=== PATIENT | female | born 1990 | race Caucasian/White ===

== ENCOUNTER 2022-02-02 13:31 | Inpatient (IN) ==
[2022-02-02] MEDS ORDERED: OXYTOCIN 30 UNITS/500 ML BAG IV PRN (21:29)
[2022-02-02] MEDS ORDERED: PENICILLIN G POTASSIUM 6 MU in DEXTROSE 5% 250 ML IV ONE (21:45)
[2022-02-02] MEDS ORDERED: DINOPROSTONE 10 MG INSERT PV ONE (21:45)
[2022-02-02 22:07] LABS: Hematocrit (blood only) 33.6 % (37-47); Hemoglobin 10.7 g/dL (12.0-16.0); Mean Corpuscular Hemoglobin 24.5 pg (25-34); Mean Corpuscular Hgb Conc 31.8 g/dL (32-36); Mean Corpuscular Volume 76.9 fL (80-100); Mean Platelet Volume 11.5 fL (7.4-10.4); Platelet Count 228 K/uL (130-400); RDW Coefficient of Variation 15.1 % (11.5-14.5); RDW Standard Deviation 42.3 fL (36.4-46.3); Red Blood Count 4.37 M/uL (4.2-5.4); White Blood Count 16.65 K/uL (4.8-10.8)
[2022-02-02] MEDS ORDERED: BUTORPHANOL TARTRATE 1 MG/ML VIAL IV PRN (22:31)
[2022-02-02] MEDS ORDERED: FLUCONAZOLE 50 MG TAB PO ONE (22:39)
--- NOTE | 2022-02-02 22:39 | History & Physical Report ---
Date of Service February 02, 2022 Assessment & Plan (1) Polyhydramnios affecting in third trimester: Plan: 31-year-old at 39 weeks and 5 days of gestation presenting today for scheduled induction of labor at term due to polyhydramnios, recommended by [facility], Slight elevated blood pressures, asymptomatic, will order labs, Afebrile, heart rate reassuring, Polyhydramnios resolved per current ultrasound, Cervix unfavorable, GBS positive, Plan to admit, monitor, labs, cervical ripening with Cervidil, penicillin in labor. All questions were answered. (2) Positive GBS test: Admission and Anticipated Discharge Date Admission Date: February 02, 2022 History of Present Illness Primary Care Provider: Cam Bauer MD Patient is a 31-year-old at 39 weeks and 5 days of gestation who was scheduled for induction of labor at term for polyhydramnios, recommended by [facility]. She has no complaints. She denies contractions, leakage of fluid, vaginal bleeding. She reports good movements. Her has been complicated by, 1. Polyhydramnios, BEE was 30 cm and she was referred to [facility] and repeat BEE was 27 cm and recommended induction of labor after 39 weeks. 2. Abnormal glucose tolerance test, elevated 1 hour level with 100 g Glucola test. 3. GBS positive, 4. Late care at 28 weeks. 5. Depression during , on Zoloft Coronavirus testing was negative. Allergies Allergy/AdvReac Type Severity Reaction Status Date / Time No Known Allergies Allergy Unverified 02/02/22 20:58 Home Medications Medication Instructions Recorded Confirmed Type sertraline 100 mg tablet (Zoloft) 100 mg PO DAILY #0 tab 02/15/16 02/02/22 History vit no.95-ferrous 1 tab PO DAILY 02/02/22 02/02/22 History fumarate 28 mg-folic acid 800 mcg tablet () Patient History Medical History (Updated 02/02/22 @ 22:37 by Phillip Dahl MD) ASCUS with positive high risk HPV Depression YAZ (generalized anxiety disorder) GBS (group B Streptococcus carrier), +RV culture, currently History of anemia Surgical History History of dental surgery Social History Smoking Status: Never smoker Hx Alcohol Use: No Hx Substance Use: No Preferred Language: [place] Communication Ability: Effective 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 Review of Systems as per Subjective / HPI Physical Exam Constitutional: WD/WN, vitals as above well developed, well nourished and + obese Comfortable , not in distress Gastrointestinal (Abdomen): normal bowel sounds, soft, nontender, no hepatosplenomegaly (Gravid, Erick 7 pounds) Genitourinary: normal external appearance OB Exam Abdomen: + vertex Manual OB Exam: + cervical dilation 1 cm, + cervical effacement 50% and + station high (-4) OB Exam Monitor Tracing: + external uterine monitor used and + category I Bedside ultrasound is performed by myself, vertex, BEE 18.5 cm, estimated weight 3200 g, placenta anterior, heart rate 140s. Results & Data ([facility]) Vital Signs (Past 12 Hours) Vital Signs Temp Pulse Resp BP 02/02/22 21:12 129 H 135/87 02/02/22 21:03 36.8 C 18 02/02/22 20:56 123 H 143/89 H
[2022-02-02 23:20] LABS: Albumin Globulin Ratio 1.1 (0.9-2); Albumin Level 3.1 gm/dl (3.4-5.0); BUN Creatinine Ratio 11.3 (10-20); Bilirubin,Total 0.6 mg/dl (0.2-1.0); Calcium 8.1 mg/dl (8.5-10.1); Est GFR (African American) 89.6 ml/min; Est GFR (Non-African American) 77.3 ml/min; Globulin 2.8 gm/dl (2.5-4.0); Potassium 3.7 mmol/L (3.5-5.1); Total Protein 5.9 gm/dl (6.0-8.3)
[2022-02-03 00:09] LABS: Creatinine Urine Random 172.9 mg/dl; Protein Creatinine Ratio Urine 0.2 (0-0.2); Total Protein Urine Random 32.4 mg/dl (0-11.9)
[2022-02-03] MEDS: LACTATED RINGER'S 1,000 ML IV PRN ×4 (01:41→17:27)
[2022-02-03] MEDS ORDERED: ePHEDrine sulfate 50 MG/ML AMP ONE ×2 (04:20→20:52)
[2022-02-03] MEDS ORDERED: fentaNYL citrate 100 MCG/2 ML VIAL ONE ×5 (04:21→21:46)
[2022-02-03] MEDS ORDERED: fentaNYL 2MCG/ML ROPIVACAINE 1.25MG/ML 100 ML BAG EPI ONE (04:21)
[2022-02-03] MEDS ORDERED: SODIUM CHLORIDE 0.9% INJ 10 ML VIAL ONE ×2 (04:21→20:44)
[2022-02-03] MEDS ORDERED: BUPIVACAINE 0.25% 30 ML VIAL ONE ×3 (04:21→20:44)
--- NOTE | 2022-02-03 05:35 | Anesthesiology Consultation ---
Date of Service February 03, 2022 Assessment & Plan Chart Review Chart Review: Acceptable Risk for Labor Epidural Consults Requested none History Height/Weight Height: 4 ft 11 in Weight: 81.647 kg Allergies Allergy/AdvReac Type Severity Reaction Status Date / Time No Known Allergies Allergy Unverified 02/02/22 20:58 Medications Home Medications Medication Instructions Recorded Confirmed Last Taken sertraline 100 mg tablet (Zoloft) 100 mg PO DAILY #0 tab 02/15/16 02/02/22 02/02/22 vit no.95-ferrous 1 tab PO DAILY 02/02/22 02/02/22 02/02/22 fumarate 28 mg-folic acid 800 mcg tablet () Active Medications Generic Name Dose Route Start Last Admin Trade Name Freq PRN Reason Stop Dose Admin Butorphanol Tartrate 1 mg 02/02/22 22:31 02/03/22 01:37 Butorphanol Tartrate 1 Mg/Ml Vial IV 03/04/22 22:30 1 mg Q3HWA PRN Administration Pain Lactated Ringer's 1,000 mls @ 125 mls/hr 02/02/22 21:29 02/03/22 04:46 Lr IV 02/04/22 21:28 125 mls/hr .Q8H PRN Administration L&D Protocol Protocol Past Medical History Medical History (Updated 02/02/22 @ 22:37 by Phillip Dahl MD) ASCUS with positive high risk HPV Depression YAZ (generalized anxiety disorder) GBS (group B Streptococcus carrier), +RV culture, currently History of anemia Past Surgical History Surgical History History of dental surgery Social History Smoking Status: Never smoker Hx Alcohol Use: No Hx Substance Use: No substance use type: does not use Physical Exam Vital Signs Last Vital Signs Temp 36.5 C 02/03/22 01:33 Pulse 108 H 02/03/22 05:34 Resp 16 02/03/22 05:25 BP 116/59 L 02/03/22 05:34 Pulse Ox 100 02/03/22 05:32 Testing Laboratory Results 02/02/22 21:49 02/02/22 22:54 Blood Type A Positive 02/02/22 21:49 Antibody Screen NEGATIVE 02/02/22 21:49
[2022-02-03] MEDS ORDERED: ePHEDrine sulfate 50 MG/ML AMP IV PRN ×2 (05:36→21:52)
[2022-02-03] MEDS ORDERED: NALOXONE HCL 0.4 MG/1 ML VIAL/CARP IV PRN ×2 (05:36→21:52)
[2022-02-03] MEDS ORDERED: NALBUPHINE HCL INJ 10 MG/ML AMP IV PRN ×2 (05:36→21:52)
[2022-02-03] MEDS ORDERED: diphenhydrAMINE 50 MG/ML VIAL IV PRN ×2 (05:36→21:52)
[2022-02-03] MEDS ORDERED: NALOXONE HCL 1 MG in SODIUM CHLORIDE 0.9% 1000ML 1,000 ML IV PRN ×2 (05:36→21:52)
[2022-02-03] MEDS ORDERED: ONDANSETRON INJ 2 MG/ML 2 ML VIAL IV PRN ×2 (05:40→21:52)
[2022-02-03] MEDS ORDERED: ONDANSETRON INJ 2 MG/ML 2 ML VIAL ONE ×2 (05:43→20:52)
[2022-02-03] MEDS: PENICILLIN G POTASSIUM 3 MU in DEXTROSE 5% 100 ML IV PRN ×4 (06:02→18:03)
[2022-02-03] MEDS ORDERED: OXYTOCIN 30 UNITS/500 ML BAG IV PRN (07:59)
[2022-02-03] MEDS: SERTRALINE HCL 100 MG TABLET PO SCH (09:09)
[2022-02-03] MEDS: PRENATAL VITAMIN 1 TAB PO SCH (09:10)
--- NOTE | 2022-02-03 14:51 | Labor Progress Brief Note ---
Date of Service February 03, 2022 Assessment & Plan Admission and Anticipated Discharge Date Admission Date: February 02, 2022 Physical Exam Genitourinary: OB Exam Abdomen: + fundal height and + vertex Manual OB Exam: + cervical dilation 6 cm and 7 cm, + cervical effacement 100%, + station - 2 and + amniotic fluid clear OB Exam Monitor Tracing: + external FHT monitor used, + external uterine monitor used, + category I and + normal FHT variability AROM with Amni-hook clear fluid Results & Data ([facility]) Vital Signs (Past 12 Hours) Vital Signs Temp Pulse Resp BP Pulse Ox 02/03/22 14:47 94 H 84 L 02/03/22 14:46 91 H 95 02/03/22 14:41 83 99 02/03/22 14:36 91 H 98 02/03/22 14:33 115 H 89 L 02/03/22 14:31 89 96 02/03/22 14:26 87 98 02/03/22 14:21 116 H 99 02/03/22 14:20 79 112/55 L 02/03/22 14:17 99 H 88 L 02/03/22 14:16 104 H 100 02/03/22 14:11 104 H 94 02/03/22 14:06 94 H 97 02/03/22 14:02 102 H 124/77 02/03/22 14:01 96 H 97 02/03/22 13:56 107 H 97 02/03/22 13:51 103 H 98 02/03/22 13:47 107 H 115/69 02/03/22 13:46 96 H 95 02/03/22 13:41 123 H 98 02/03/22 13:40 110 H 87 L 02/03/22 13:36 131 H 99 02/03/22 13:34 139 H 130/75 02/03/22 13:31 98 H 99 02/03/22 13:26 97 H 97 02/03/22 13:21 89 98 02/03/22 13:19 90 121/62 02/03/22 13:16 93 H 98 02/03/22 13:11 89 97 02/03/22 13:06 86 95 02/03/22 13:02 83 102/55 L 02/03/22 13:01 88 96 02/03/22 12:56 88 97 02/03/22 12:51 87 98 02/03/22 12:49 90 88 L 02/03/22 12:47 91 H 102/59 L 02/03/22 12:46 96 H 98 02/03/22 12:41 90 96 02/03/22 12:36 90 97 02/03/22 12:34 93 H 102/57 L 02/03/22 12:31 95 H 95 02/03/22 12:26 91 H 96 02/03/22 12:21 88 97 02/03/22 12:19 88 106/56 L 02/03/22 12:16 98 H 99 02/03/22 12:11 94 H 99 02/03/22 12:10 36.8 C 18 02/03/22 12:06 98 H 98 02/03/22 12:02 85 121/57 L 02/03/22 12:01 90 99 02/03/22 11:56 89 99 02/03/22 11:51 93 H 100 02/03/22 11:48 86 137/83 02/03/22 11:46 82 98 02/03/22 11:45 91 H 88 L 02/03/22 11:41 94 H 99 02/03/22 11:36 79 99 02/03/22 11:32 87 132/78 02/03/22 11:31 94 H 98 02/03/22 11:26 86 98 02/03/22 11:21 84 98 02/03/22 11:19 75 138/82 02/03/22 11:16 87 96 02/03/22 11:11 79 96 02/03/22 11:06 83 98 02/03/22 11:04 83 133/79 02/03/22 11:01 92 H 99 02/03/22 10:56 87 98 02/03/22 10:51 85 95 02/03/22 10:47 82 139/82 02/03/22 10:46 86 97 02/03/22 10:41 94 H 99 02/03/22 10:36 91 H 97 02/03/22 10:33 85 140/74 02/03/22 10:31 83 98 02/03/22 10:26 87 98 02/03/22 10:21 88 97 02/03/22 10:17 84 127/67 02/03/22 10:16 108 H 98 02/03/22 10:11 110 H 98 02/03/22 10:06 90 99 02/03/22 10:04 36.7 C 18 02/03/22 10:03 98 H 127/59 L 02/03/22 10:01 92 H 99 02/03/22 09:56 92 H 98 02/03/22 09:51 90 99 02/03/22 09:48 88 123/56 L 02/03/22 09:46 98 H 96 02/03/22 09:41 93 H 97 02/03/22 09:36 89 98 02/03/22 09:33 85 109/57 L 02/03/22 09:31 93 H 95 02/03/22 09:26 89 95 02/03/22 09:21 85 95 02/03/22 09:18 86 108/55 L 02/03/22 09:16 96 H 98 02/03/22 09:11 87 97 02/03/22 09:06 93 H 97 02/03/22 09:02 84 95/53 L 02/03/22 09:01 89 97 02/03/22 08:56 91 H 97 02/03/22 08:51 91 H 96 02/03/22 08:48 84 97/54 L 02/03/22 08:46 85 95 02/03/22 08:41 87 97 02/03/22 08:36 88 97 02/03/22 08:32 79 95/53 L 02/03/22 08:31 83 98 02/03/22 08:26 86 98 02/03/22 08:21 87 97 02/03/22 08:19 86 99/55 L 02/03/22 08:16 98 H 98 02/03/22 08:11 85 98 02/03/22 08:06 86 96 02/03/22 08:03 86 103/58 L 02/03/22 08:01 89 95 02/03/22 07:56 87 95 02/03/22 07:51 83 96 02/03/22 07:49 86 123/65 02/03/22 07:48 81 83/51 L 02/03/22 07:47 86 88/52 L 02/03/22 07:42 109 H 99 02/03/22 07:37 99 H 99 02/03/22 07:32 86 90/54 L 96 02/03/22 07:27 87 97 02/03/22 07:22 93 H 97 02/03/22 07:17 95 H 107/59 L 99 02/03/22 07:15 36.6 C 16 02/03/22 07:12 102 H 99 02/03/22 07:07 103 H 98 02/03/22 07:02 86 101/54 L 98 02/03/22 06:57 88 96 02/03/22 06:52 88 96 02/03/22 06:48 86 107/53 L 02/03/22 06:47 88 97 02/03/22 06:42 88 95 02/03/22 06:37 88 95 02/03/22 06:33 87 104/57 L 88 L 02/03/22 06:32 85 92 02/03/22 06:27 91 H 94 02/03/22 06:22 95 H 93 02/03/22 06:18 84 105/53 L 02/03/22 06:17 86 95 02/03/22 06:12 87 95 02/03/22 06:07 92 H 94 02/03/22 06:05 16 02/03/22 06:02 101 H 97 02/03/22 06:00 93 H 111/55 L 02/03/22 05:57 92 H 95 02/03/22 05:55 18 02/03/22 05:54 83 105/55 L 02/03/22 05:52 90 96 02/03/22 05:50 96 H 111/56 L 02/03/22 05:47 98 H 98 02/03/22 05:46 100 H 113/59 L 02/03/22 05:42 106 H 99 02/03/22 05:40 113 H 16 123/56 L 02/03/22 05:37 124 H 96 02/03/22 05:34 108 H 116/59 L 02/03/22 05:32 113 H 111/60 100 02/03/22 05:27 106 H 103/56 L 97 02/03/22 05:25 104 H 16 109/56 L 02/03/22 05:23 101 H 104/55 L 02/03/22 05:22 99 H 99 02/03/22 05:21 108 H 103/58 L 02/03/22 05:20 18 02/03/22 05:19 110 H 101/51 L 02/03/22 05:17 103 H 105/59 L 94 02/03/22 05:16 109 H 113/63 02/03/22 05:15 20 02/03/22 05:12 108 H 95 02/03/22 05:07 106 H 94 02/03/22 05:05 101 H 20 120/70 02/03/22 05:02 104 H 97 02/03/22 04:57 102 H 95 02/03/22 04:52 88 97 02/03/22 04:47 105 H 100 02/03/22 04:42 100 H 100 02/03/22 04:37 94 H 99 02/03/22 04:32 96 H 98 02/03/22 04:27 100 H 100 02/03/22 03:29 93 H 137/75
[2022-02-03] MEDS: fentaNYL 2MCG/ML ROPIVACAINE 1.25MG/ML 100 ML BAG EPI PRN ×2 (15:00→20:16)
[2022-02-03] MEDS ORDERED: NURSING L&D Epidural Breakthrough Pain Update ONE (16:07)
[2022-02-03] MEDS ORDERED: LIDOCAINE 2% MPF LOCAL 5 ML VIAL INFIL ONE (17:02)
--- NOTE | 2022-02-03 17:37 | Anesthesiology Progress Note ---
Date of Service February 03, 2022 Assessment & Plan Admission and Anticipated Discharge Date Admission Date: February 02, 2022 Subjective called by nursing, pt with lbp and pelvic pressure pain. level to ice right t6, left t12/l1. rolled to left side baby tolerated well. 30 min later, called again for pepvic pain 8cm baby stable. neg catheter aspiration 10 cm at skin. gave 5ml 2%lido and fent 100mcg via epidural catheter. pt now without pain. nursing to monitor no changes in pcea rates. Physical Exam Vital Signs: Last Vital Signs Temp 36.8 C 02/03/22 16:01 Pulse 107 H 02/03/22 17:32 Resp 18 02/03/22 16:01 BP 143/90 H 02/03/22 17:18 Pulse Ox 91 02/03/22 17:32 Results & Data ([facility]) Medications Administered Butorphanol Tartrate (Butorphanol Tartrate 1 Mg/Ml Vial) 1 mg IV Q3HWA PRN PRN Reason: Pain Stop: 03/04/22 22:30 Last Admin: 02/03/22 01:37 Dose: 1 mg Documented by: [id number] Cosigned by: [id number] Lactated Ringer's (Lr) 1,000 mls @ 125 mls/hr IV .Q8H PRN; Protocol PRN Reason: L&D Protocol Stop: 02/04/22 21:28 Last Admin: 02/03/22 17:27 Dose: 999 mls/hr Documented by: [id number] Infusion: 02/03/22 17:23 Dose: 999 mls/hr Documented by: [id number] Infusion: 02/03/22 16:45 Dose: 999 mls/hr Documented by: [id number] Admin: 02/03/22 13:47 Dose: 125 mls/hr Documented by: [id number] Infusion: 02/03/22 13:47 Dose: 125 mls/hr Documented by: [id number] Infusion: 02/03/22 07:02 Dose: 125 mls/hr Documented by: [id number] Infusion: 02/03/22 06:02 Dose: 0 mls/hr Documented by: [id number] Admin: 02/03/22 04:46 Dose: 125 mls/hr Documented by: [id number] Infusion: 02/03/22 04:39 Dose: 999 mls/hr Documented by: [id number] Infusion: 02/03/22 04:16 Dose: 999 mls/hr Documented by: [id number] Infusion: 02/03/22 03:10 Dose: 125 mls/hr Documented by: [id number] Infusion: 02/03/22 02:15 Dose: 0 mls/hr Documented by: [id number] Infusion: 02/03/22 02:10 Dose: 125 mls/hr Documented by: [id number] Admin: 02/03/22 01:41 Dose: 999 mls/hr Documented by: [id number] Penicillin G Potassium 3 mu/ (Dextrose) 106 mls @ 100 mls/hr IV Q4H PRN PRN Reason: GBS(+) Until Delivery Stop: 02/13/22 00:28 Last Admin: 02/03/22 14:05 Dose: 100 mls/hr Documented by: [id number] Infusion: 02/03/22 11:13 Dose: 100 mls/hr Documented by: [id number] Admin: 02/03/22 10:09 Dose: 100 mls/hr Documented by: [id number] Infusion: 02/03/22 07:06 Dose: 0 mls/hr Documented by: [id number] Admin: 02/03/22 06:02 Dose: 100 mls/hr Documented by: [id number] Oxytocin (Pitocin) 30 units in 500 mls @ 14 mls/hr IV .Q24H PRN; Protocol PRN Reason: Labor Induction/Augmentation Stop: 02/05/22 07:58 Last Titration: 02/03/22 15:02 Dose: 0.84 units/hr, 14 mls/hr Documented by: [id number] Titration: 02/03/22 12:35 Dose: 0.72 units/hr, 12 mls/hr Documented by: [id number] Titration: 02/03/22 10:20 Dose: 0.6 units/hr, 10 mls/hr Documented by: [id number] Titration: 02/03/22 09:45 Dose: 0.48 units/hr, 8 mls/hr Documented by: [id number] Titration: 02/03/22 09:15 Dose: 0.36 units/hr, 6 mls/hr Documented by: [id number] Titration: 02/03/22 08:45 Dose: 0.24 units/hr, 4 mls/hr Documented by: [id number] Admin: 02/03/22 08:15 Dose: 0.12 units/hr, 2 mls/hr Documented by: [id number] Cosigned by: [id number] Ondansetron HCl (Ondansetron Inj 2 Mg/Ml 2 Ml Vial) 4 mg IV Q4H PRN PRN Reason: Nausea Stop: 03/05/22 05:39 Last Admin: 02/03/22 05:44 Dose: 4 mg Documented by: [id number] Prenat Multivit/Staff Educator/Iron/Folic Ac ( Vitamin 1 Tab) 1 tab PO DAILY DAVID Stop: 03/05/22 08:59 Last Admin: 02/03/22 09:10 Dose: Not Given Documented by: [id number] Ropivacaine (Fentanyl 2mcg/Ml Ropivacaine 1.25mg/Ml 100 Ml Bag) 100 ml EPI PRN PRN; Protocol PRN Reason: Pain R/T Labor Stop: 02/04/22 05:35 Last Admin: 02/03/22 15:00 Dose: 100 ml Documented by: [id number] Cosigned by: [id number] Sertraline HCl (Sertraline Hcl 100 Mg Tablet) 100 mg PO DAILY DAVID Stop: 03/05/22 08:59 Last Admin: 02/03/22 09:09 Dose: Not Given Documented by: [id number]
[2022-02-03] MEDS ORDERED: LIDOCAINE 2% 2 ML VIAL/AMP(20MG/ML) INFIL ONE (19:21)
--- NOTE | 2022-02-03 20:27 | History & Physical Bridge Note ---
Date of Service February 03, 2022 History & Physical Bridge Note I have examined the patient, reviewed the History & Physical and in the interval since the performance of the History & Physical I have noted the following changes of clinical significance: no changes noted
[2022-02-03] MEDS ORDERED: AZITHROMYCIN 500 MG in DEXTROSE 5% 250 ML IV STA (20:29)
--- NOTE | 2022-02-03 20:29 | Labor Progress Brief Note ---
Date of Service February 03, 2022 Assessment & Plan Admission and Anticipated Discharge Date Admission Date: February 02, 2022 Physical Exam Genitourinary: Manual OB Exam: + cervical dilation 10 cm, + cervical effacement 100% and + station 0 OB Exam Monitor Tracing: + external FHT monitor used, + external uterine monitor used, + category I and + normal FHT variability patient refusing to push will do consents signed Results & Data ([facility]) Vital Signs (Past 12 Hours) Vital Signs Temp Pulse Resp BP Pulse Ox 02/03/22 20:22 124 H 99 02/03/22 20:17 117 H 95 02/03/22 20:14 109 H 128/85 02/03/22 20:12 115 H 96 02/03/22 20:07 162 H 100 02/03/22 20:02 104 H 97 02/03/22 20:01 139 H 91 02/03/22 19:58 105 H 141/68 H 02/03/22 19:57 143 H 95 02/03/22 19:56 110 H 86 L 02/03/22 19:52 113 H 98 02/03/22 19:47 103 H 98 02/03/22 19:43 123 H 138/65 02/03/22 19:42 143 H 99 02/03/22 19:37 153 H 76 L 02/03/22 19:32 121 H 100 02/03/22 19:29 142 H 111/59 L 02/03/22 19:27 146 H 100 02/03/22 19:23 36.6 C 22 02/03/22 19:22 132 H 98 02/03/22 19:20 122 H 86 L 02/03/22 19:16 122 H 97 02/03/22 19:12 111 H 107/64 02/03/22 19:11 109 H 98 02/03/22 19:10 111 H 134/69 02/03/22 19:08 118 H 173/74 H 02/03/22 19:06 136 H 155/79 H 97 02/03/22 19:04 150 H 122/86 02/03/22 19:02 166 H 118/80 02/03/22 19:01 141 H 94 02/03/22 18:56 103 H 74 L 02/03/22 18:51 128 H 100 02/03/22 18:46 119 H 82 L 02/03/22 18:41 105 H 99 02/03/22 18:38 118 H 78 L 02/03/22 18:36 112 H 99 02/03/22 18:32 107 H 119/62 90 02/03/22 18:31 110 H 94 02/03/22 18:26 108 H 86 L 02/03/22 18:21 104 H 100 02/03/22 18:18 103 H 117/57 L 02/03/22 18:16 97 H 99 02/03/22 18:11 118 H 99 02/03/22 18:10 107 H 85 L 02/03/22 18:06 89 100 02/03/22 18:03 93 H 127/77 02/03/22 18:02 96 H 90 02/03/22 18:01 96 H 91 02/03/22 17:56 104 H 90 02/03/22 17:55 97 H 87 L 02/03/22 17:51 94 H 96 02/03/22 17:46 95 H 77 L 02/03/22 17:44 101 H 89 L 02/03/22 17:41 97 H 99 02/03/22 17:37 102 H 88 L 02/03/22 17:36 99 H 98 02/03/22 17:33 112 H 128/83 02/03/22 17:32 107 H 91 02/03/22 17:31 118 H 100 02/03/22 17:26 121 H 100 02/03/22 17:21 123 H 98 02/03/22 17:18 100 H 143/90 H 02/03/22 17:16 103 H 99 02/03/22 17:12 111 H 186/94 H 02/03/22 17:11 113 H 100 02/03/22 17:06 110 H 169/96 H 100 02/03/22 17:02 105 H 177/118 H 02/03/22 17:01 111 H 100 02/03/22 16:56 107 H 96 02/03/22 16:53 110 H 86 L 02/03/22 16:51 106 H 99 02/03/22 16:47 106 H 84 L 02/03/22 16:46 99 H 96 02/03/22 16:41 102 H 98 02/03/22 16:37 100 H 183/105 H 02/03/22 16:36 96 H 100 02/03/22 16:34 105 H 89 L 02/03/22 16:33 101 H 187/115 H 02/03/22 16:31 103 H 96 02/03/22 16:26 99 H 95 02/03/22 16:21 100 H 99 02/03/22 16:19 96 H 148/73 H 02/03/22 16:17 109 H 133/66 02/03/22 16:16 93 H 98 02/03/22 16:11 94 H 97 02/03/22 16:06 95 H 98 02/03/22 16:02 88 121/66 02/03/22 16:01 36.8 C 92 H 18 98 02/03/22 15:56 96 H 97 02/03/22 15:51 95 H 98 02/03/22 15:48 99 H 146/84 H 02/03/22 15:46 101 H 99 02/03/22 15:41 100 H 98 02/03/22 15:36 100 H 99 02/03/22 15:32 90 125/72 02/03/22 15:31 93 H 99 02/03/22 15:26 96 H 99 02/03/22 15:21 97 H 98 02/03/22 15:18 89 119/71 02/03/22 15:16 96 H 100 02/03/22 15:11 98 H 100 02/03/22 15:06 107 H 100 02/03/22 15:02 99 H 145/68 H 02/03/22 15:01 95 H 99 02/03/22 14:56 104 H 98 02/03/22 14:51 94 H 100 02/03/22 14:47 94 H 84 L 02/03/22 14:46 91 H 95 02/03/22 14:41 83 99 02/03/22 14:36 91 H 98 02/03/22 14:33 115 H 89 L 02/03/22 14:31 89 96 02/03/22 14:26 87 98 02/03/22 14:21 116 H 99 02/03/22 14:20 79 112/55 L 02/03/22 14:17 99 H 88 L 02/03/22 14:16 104 H 100 02/03/22 14:11 104 H 94 02/03/22 14:06 94 H 97 02/03/22 14:02 102 H 124/77 02/03/22 14:01 96 H 97 02/03/22 13:56 107 H 97 02/03/22 13:51 103 H 98 02/03/22 13:47 107 H 115/69 02/03/22 13:46 96 H 95 02/03/22 13:41 123 H 98 02/03/22 13:40 110 H 87 L 02/03/22 13:36 131 H 99 02/03/22 13:34 139 H 130/75 02/03/22 13:31 98 H 99 02/03/22 13:26 97 H 97 02/03/22 13:21 89 98 02/03/22 13:19 90 121/62 02/03/22 13:16 93 H 98 02/03/22 13:11 89 97 02/03/22 13:06 86 95 02/03/22 13:02 83 102/55 L 02/03/22 13:01 88 96 02/03/22 12:56 88 97 02/03/22 12:51 87 98 02/03/22 12:49 90 88 L 02/03/22 12:47 91 H 102/59 L 02/03/22 12:46 96 H 98 02/03/22 12:41 90 96 02/03/22 12:36 90 97 02/03/22 12:34 93 H 102/57 L 02/03/22 12:31 95 H 95 02/03/22 12:26 91 H 96 02/03/22 12:21 88 97 02/03/22 12:19 88 106/56 L 02/03/22 12:16 98 H 99 02/03/22 12:11 94 H 99 02/03/22 12:10 36.8 C 18 02/03/22 12:06 98 H 98 02/03/22 12:02 85 121/57 L 02/03/22 12:01 90 99 02/03/22 11:56 89 99 02/03/22 11:51 93 H 100 02/03/22 11:48 86 137/83 02/03/22 11:46 82 98 02/03/22 11:45 91 H 88 L 02/03/22 11:41 94 H 99 02/03/22 11:36 79 99 02/03/22 11:32 87 132/78 02/03/22 11:31 94 H 98 02/03/22 11:26 86 98 02/03/22 11:21 84 98 02/03/22 11:19 75 138/82 02/03/22 11:16 87 96 02/03/22 11:11 79 96 02/03/22 11:06 83 98 02/03/22 11:04 83 133/79 02/03/22 11:01 92 H 99 02/03/22 10:56 87 98 02/03/22 10:51 85 95 02/03/22 10:47 82 139/82 02/03/22 10:46 86 97 02/03/22 10:41 94 H 99 02/03/22 10:36 91 H 97 02/03/22 10:33 85 140/74 02/03/22 10:31 83 98 02/03/22 10:26 87 98 02/03/22 10:21 88 97 02/03/22 10:17 84 127/67 02/03/22 10:16 108 H 98 02/03/22 10:11 110 H 98 02/03/22 10:06 90 99 02/03/22 10:04 36.7 C 18 02/03/22 10:03 98 H 127/59 L 02/03/22 10:01 92 H 99 02/03/22 09:56 92 H 98 02/03/22 09:51 90 99 02/03/22 09:48 88 123/56 L 02/03/22 09:46 98 H 96 02/03/22 09:41 93 H 97 02/03/22 09:36 89 98 02/03/22 09:33 85 109/57 L 02/03/22 09:31 93 H 95 02/03/22 09:26 89 95 02/03/22 09:21 85 95 02/03/22 09:18 86 108/55 L 02/03/22 09:16 96 H 98 02/03/22 09:11 87 97 02/03/22 09:06 93 H 97 02/03/22 09:02 84 95/53 L 02/03/22 09:01 89 97 02/03/22 08:56 91 H 97 02/03/22 08:51 91 H 96 02/03/22 08:48 84 97/54 L 02/03/22 08:46 85 95 02/03/22 08:41 87 97 02/03/22 08:36 88 97 02/03/22 08:32 79 95/53 L 02/03/22 08:31 83 98
[2022-02-03] MEDS ORDERED: LACTATED RINGER'S 1,000 ML IV SCH ×2 (20:30→22:36)
[2022-02-03] MEDS ORDERED: CITRIC ACID/SODIUM CITRATE 15 ML UDC PO SCH (20:35)
[2022-02-03] MEDS ORDERED: ceFAZolin 2000MG 2,000 MG/15 ML SYR IV SCH (20:45)
[2022-02-03] MEDS ORDERED: METOCLOPRAMIDE HCL INJ 5 MG/ML 2 ML VIAL ONE (20:52)
[2022-02-03] MEDS ORDERED: PHENYLEPHRINE HCL 10 MG/ML VIAL ONE (20:52)
[2022-02-03] MEDS ORDERED: MoRPHine SULFATE PF 1 MG/ML 10 ML AMP/VIAL ONE (20:53)
--- NOTE | 2022-02-03 20:57 | Communication Note ---
Date of Service: February 03, 2022 At 2050 patient epidural was bolused w/ 12 ml 0.17% bupivacaine + 100 mcgs fentanyl w/ incremental asp. and boluses;neg. asp. ; VSS stable
[2022-02-03] MEDS ORDERED: OXYTOCIN 10 UNITS/ML 10ML VIAL ONE ×2 (21:49→22:09)
[2022-02-03] MEDS ORDERED: MoRPHine SULFATE 2 MG/ML CARP IV PRN (21:52)
[2022-02-03] MEDS ORDERED: PROMETHAZINE HCL 25 MG in SODIUM CHLORIDE 0.9% 50 ML IV PRN (21:52)
[2022-02-03] MEDS ORDERED: MoRPHine SULFATE PF 1 MG/ML 10 ML AMP/VIAL INT SPINAL ONE (21:52)
[2022-02-03] MEDS ORDERED: MEPERIDINE HCL 25 MG/ML CARP/VIAL IV PRN (21:52)
[2022-02-03] MEDS ORDERED: NALOXONE HCL 0.08 MG in SYRINGE 1.8 ML IV PRN (21:52)
[2022-02-03] MEDS ORDERED: METOCLOPRAMIDE HCL 20 MG in SODIUM CHLORIDE 0.9% 50 ML IV PRN (21:52)
[2022-02-03] MEDS ORDERED: diphenhydrAMINE Capsule 25 MG CAP PO PRN (21:52)
[2022-02-03] MEDS ORDERED: LACTATED RINGER'S 500 ML IV PRN (21:52)
[2022-02-03] MEDS ORDERED: DC INTRASPINAL MORPHINE SCH (22:00)
[2022-02-03] MEDS ORDERED: SODIUM CHLORIDE 0.9% 1000ML 1,000 ML IV SCH (22:00)
[2022-02-03] MEDS ORDERED: NO NARCOTICS OR SEDATIVES SCH (22:00)
--- NOTE | 2022-02-03 22:25 | Anesthesia Procedure Note ---
Date of Service February 03, 2022 Anesthesia Post Epidural Note Vital Signs Vital Signs: Temp Pulse Resp BP Pulse Ox 36.6 C 102 H 22 136/76 98 02/03/22 19:23 02/03/22 22:20 02/03/22 19:23 02/03/22 22:20 02/03/22 22:20 Pain Intensity Lower Abdomen: Pain Intensity: 8 Notes Mental Status: alert / awake / arousable Patient Amnestic to Procedure: Yes Nausea / Vomiting: adequately controlled Pain: adequately controlled Airway Patency, RR, SpO2: stable & adequate BP & HR: stable & adequate Hydration State: stable & adequate Anesthetic Complications: no major complications apparent and Pt Satisfied with anesthetic care Epidural: Removed without complications and With tip intact
[2022-02-03] MEDS: KETOROLAC 30 MG/ML VIAL IV PRN (22:26)
--- NOTE | 2022-02-03 22:35 | Post Operative Brief Note ---
Immediate Post Op Note v1 Date of Surgery February 03, 2022 Pre & Post Diagnosis Operation Date: 02/03/22 21:00 Pre-Op Diagnosis: 1. Arrest of Descent I identified the patient and participated in the time-out.: Yes Procedure Operation Date: 02/03/22 21:00 Actual Procedures p Section in LD - Diego Sol MD Surgeon Diego Sol MD Office Machine [employer] Apprentice Dr Gonzalez Estimated Blood Loss 700 Findings Consistent with Post-Op Diagnosis live male Apgars 8/9 Fluids 2000 ml. LR Specimens cord blood placenta Drains Frankel Catheter (draining) Anesthesia Type Labor Epidural Complications none Disposition Accompanied Patient To Recovery: Yes Overlapping Procedure I was present for: the critical portions of procedure. I was immediately available: during the entire case. Back up surgeon: used during listed procedure.
[2022-02-03] MEDS ORDERED: MAGNESIUM HYDROXIDE SUSP 30 ML UDC PO PRN (22:36)
[2022-02-03] MEDS ORDERED: HYDROCORTISONE ACETATE 25 MG SUPP PR PRN (22:36)
[2022-02-03] MEDS ORDERED: BENZOCAINE 20% AER SPR 82.5 GM CAN EXT PRN (22:36)
[2022-02-03] MEDS ORDERED: SENNA 8.6 MG TAB PO PRN (22:36)
[2022-02-03] MEDS ORDERED: DIPHTHERIA/TETANUS/PERTUSSIS 0.5 ML SYR/VIAL IM ONE (22:36)
[2022-02-03] MEDS: OXYTOCIN 30 UNITS in LACTATED RINGER'S 1,000 ML IV SCH (23:55)
--- NOTE | 2022-02-04 01:37 | Operative Report (OR) ---
DATE OF SURGERY: 02/03/2022 PREOPERATIVE DIAGNOSIS: Arrest of descent. POSTOPERATIVE DIAGNOSES: Arrest of descent, deep transverse arrest, nuchal cord x1. PROCEDURE PERFORMED: Primary section, low segment transverse. SURGEON: Diego Sol MD. HIGH SCHOOL LEARNING SUPPORT TEACHER: Derian Gonzalez MD. ANESTHESIA: Labor epidural. ESTIMATED BLOOD LOSS: 700 mL. FINDINGS: Live male, Apgars 8 and 9, weight pending. Nuchal cord x1. Deep transverse arrest o f the vertex. FLUIDS: 2000 mL of LR. SPECIMENS: Cord blood and placenta. DRAINS: Frankel. COMPLICATIONS: None. CLINICAL HISTORY: The patient is a 31-year-old female, para 0-0-0-0, at 39 weeks and 6 days, admitte d for induction of labor because of polyhydramnios. The patient was fully dilated, pushed for a henrietta le bit of time, epidural was not working right, it was redosed, still not working properly. The harjinder ent was screaming in pain and would not push any further and requesting a . A timeout was c alled. Antibiotics were given preop. DESCRIPTION OF PROCEDURE: Under satisfactory epidural anesthesia, the patient was prepped and draped in the usual sterile fashion. A low Pfannenstiel incision was made entering into the abdominal cavi ty in successive layers. Upon entering into the abdominal cavity, pickups with teeth and Metzenbaums were then used to develop a bladder flap. A sharp incision was made in the lower uterine segment tr ansverse. Incision was widened in the AP diameter. The fluid was noted to be meconium stained. The infant was then delivered from the vertex presentation with a nuchal cord x1, reduced at the time of delivery with the aid of fundal pressure. The cord was doubly clamped and cut after a 1 minute cord delay. Cord blood was obtained. Baby was handed to interior design coordinator with Apgars of 8 and 9. Placenta w as then delivered manually and intact. Uterus was then expressed of all clots and debris. Uterus was closed in a double layer closure with 0 Vicryl suture in a continuous interlocking fashion followed by a second imbricating suture. The in itial sponge, needle, and instrument count were found to be correct. The tubes and ovaries bilaterall y were found to be within normal limits. After the closure of the uterus, the contents of the pelvic cavity were then irrigated to clear. The initial sponge, needle and instrument counts were found to be correct. Subcuticular space was irrigated, bleeders were then cauterized and then the skin was r eapproximated with leonor. Telfa and sponge dressing were then applied. Blood-tinged urine was not ed from the Frankel bag. The patient was then placed supine on a stretcher and taken to the recovery r oom in stable condition. 700 mL EBL. Please note that Dr. Gonzalez was needed for retraction, assistance at delivery of the head, closure of the uterus and then closure of the abdomen. Job ID: [id number]
[2022-02-04] MEDS: cephALEXin 500 MG CAP PO SCH ×3 (05:52→23:34)
[2022-02-04] MEDS: metroNIDAZOLE 500 MG TAB PO SCH ×3 (05:53→23:34)
[2022-02-04] MEDS: KETOROLAC 30 MG/ML VIAL IV PRN ×2 (06:02→14:57)
[2022-02-04 06:46] LABS: Basophils # (auto) 0.02 K/uL (0-0.2); Basophils % (auto) 0.1 %; Eosinophils # (auto) 0.02 K/uL (0-0.5); Eosinophils % (auto) 0.1 %; Hematocrit (blood only) 27.6 % (37-47); Immature Granulocytes # (auto) 0.09 K/uL (0.00-0.02); Immature Granulocytes % (auto) 0.5 %; Lymphocytes # (auto) 1.52 K/uL (1.2-3.4); Mean Corpuscular Hemoglobin 25.9 pg (25-34); Mean Corpuscular Hgb Conc 32.6 g/dL (32-36); Mean Corpuscular Volume 79.3 fL (80-100); Mean Platelet Volume 11.3 fL (7.4-10.4); Monocytes # (auto) 1.64 K/uL (0.11-0.59); Monocytes % (auto) 8.6 %; Neutrophils # (auto) 15.72 K/uL (1.4-6.5); Neutrophils % (auto) 82.7 %; Platelet Count 179 K/uL (130-400); RDW Coefficient of Variation 15.3 % (11.5-14.5); RDW Standard Deviation 44.2 fL (36.4-46.3); Red Blood Count 3.48 M/uL (4.2-5.4); White Blood Count 19.01 K/uL (4.8-10.8)
[2022-02-04] MEDS: FERROUS SULFATE 325 MG TAB PO SCH (08:00)
--- NOTE | 2022-02-04 08:29 | Obstetrical Progress Note ---
Date of Service February 04, 2022 Assessment & Plan Admission and Anticipated Discharge Date Admission Date: February 02, 2022 Subjective Patient is seen and examined. She feels well, no complaints. Pain is under control with oral meds. Not OOB yet. Tolerating clear diet with out N&V Flatus neg Bleeding is minimal No fever/ chills/ CP/ SOB/ N&V/ Leg pain Breast feeding without problems Vital Signs Temp Pulse Pulse Resp BP BP Pulse Ox 02/04/22 06:00 16 96 02/04/22 05:00 18 96 02/04/22 04:00 14 98 02/04/22 03:00 36.6 C 94 H 18 107/69 96 02/04/22 01:55 36.8 C 88 16 106/58 L 94 02/04/22 00:55 36.6 C 96 H 18 108/57 L 94 02/04/22 00:45 100 H 95 02/04/22 00:40 90 128/60 95 02/04/22 00:35 98 H 96 02/04/22 00:32 108 H 91 02/04/22 00:30 202 H 127/69 83 L 02/04/22 00:26 108 H 90 02/04/22 00:25 101 H 96 02/04/22 00:21 105 H 141/90 H 02/04/22 00:20 105 H 93 02/04/22 00:19 116 H 91 02/04/22 00:15 107 H 97 02/04/22 00:10 104 H 117/55 L 96 02/04/22 00:05 109 H 97 02/04/22 00:00 103 H 123/60 96 02/03/22 23:55 102 H 96 02/03/22 23:50 97 H 125/63 96 02/03/22 23:45 98 H 98 02/03/22 23:40 112 H 96 02/03/22 23:35 109 H 94 02/03/22 23:30 118 H 107/61 95 02/03/22 23:25 114 H 95 02/03/22 23:24 118 H 90 02/03/22 23:20 36.8 C 103 H 16 112/56 L 95 02/03/22 23:15 109 H 94 02/03/22 23:10 110 H 18 118/64 97 02/03/22 23:09 117 H 94 06/01/22 23:05 108 H 96 02/03/22 23:00 108 H 18 114/61 96 02/03/22 22:55 111 H 98 02/03/22 22:50 102 H 16 123/56 L 94 02/03/22 22:45 121 H 98 02/03/22 22:41 103 H 81 L 02/03/22 22:40 105 H 20 100 02/03/22 22:35 101 H 97 02/03/22 22:31 102 H 90 02/03/22 22:30 102 H 18 140/75 97 02/03/22 22:25 106 H 99 02/03/22 22:20 36.8 C 102 H 18 136/76 98 02/03/22 21:09 94 H 108/58 L 02/03/22 21:07 112 H 113/58 L 02/03/22 21:04 105 H 96 02/03/22 20:59 113 H 94 02/03/22 20:54 115 H 96 02/03/22 20:49 120 H 95 02/03/22 20:44 122 H 97 02/03/22 20:39 139 H 93 02/03/22 20:32 118 H 97 Pulse OX: 98% RA PE: General: Alert, orientedx3, NAD CVS: S1S2 RRR Lungs; CTAB Abd: soft, NT, ND, BS+, fundus firm, below Umbilicus Incision/ Dressing: Clean, dry, intact Perineum intact, Lochia rubra minimal Ext; NT, no edema, Homans sign neg/ neg AP: 31 yo s/p C Section, pod# 1 VSS Afebrile doing well Continue routine postop care Encourage ambulation in the afternoon, PO intake All questions were answered Results & Data ([facility]) Vital Signs (Past 12 Hours) Vital Signs Temp Pulse Pulse Resp BP BP Pulse Ox 02/04/22 06:00 16 96 02/04/22 05:00 18 96 02/04/22 04:00 14 98 02/04/22 03:00 36.6 C 94 H 18 107/69 96 02/04/22 01:55 36.8 C 88 16 106/58 L 94 02/04/22 00:55 36.6 C 96 H 18 108/57 L 94 02/04/22 00:45 100 H 95 06/02/22 00:40 90 128/60 95 02/04/22 00:35 98 H 96 02/04/22 00:32 108 H 91 02/04/22 00:30 202 H 127/69 83 L 02/04/22 00:26 108 H 90 02/04/22 00:25 101 H 96 02/04/22 00:21 105 H 141/90 H 02/04/22 00:20 105 H 93 02/04/22 00:19 116 H 91 02/04/22 00:15 107 H 97 02/04/22 00:10 104 H 117/55 L 96 02/04/22 00:05 109 H 97 02/04/22 00:00 103 H 123/60 96 02/03/22 23:55 102 H 96 02/03/22 23:50 97 H 125/63 96 02/03/22 23:45 98 H 98 02/03/22 23:40 112 H 96 02/03/22 23:35 109 H 94 02/03/22 23:30 118 H 107/61 95 02/03/22 23:25 114 H 95 02/03/22 23:24 118 H 90 02/03/22 23:20 36.8 C 103 H 16 112/56 L 95 02/03/22 23:15 109 H 94 02/03/22 23:10 110 H 18 118/64 97 02/03/22 23:09 117 H 94 02/03/22 23:05 108 H 96 02/03/22 23:00 108 H 18 114/61 96 02/03/22 22:55 111 H 98 02/03/22 22:50 102 H 16 123/56 L 94 02/03/22 22:45 121 H 98 02/03/22 22:41 103 H 81 L 02/03/22 22:40 105 H 20 100 02/03/22 22:35 101 H 97 02/03/22 22:31 102 H 90 02/03/22 22:30 102 H 18 140/75 97 02/03/22 22:25 106 H 99 02/03/22 22:20 36.8 C 102 H 18 136/76 98 02/03/22 21:09 94 H 108/58 L 02/03/22 21:07 112 H 113/58 L 02/03/22 21:04 105 H 96 02/03/22 20:59 113 H 94 02/03/22 20:54 115 H 96 02/03/22 20:49 120 H 95 02/03/22 20:44 122 H 97 02/03/22 20:39 139 H 93 02/03/22 20:32 118 H 97 02/03/22 20:28 122 H 179/101 H
[2022-02-04] MEDS: SIMETHICONE 80 MG CHEW PO SCH ×4 (08:35→23:34)
[2022-02-04] MEDS: SERTRALINE HCL 100 MG TABLET PO SCH (08:36)
[2022-02-04] MEDS: PRENATAL VITAMIN 1 TAB PO SCH ×2 (08:36→12:30)
[2022-02-04] MEDS: DOCUSATE SODIUM 100 MG CAP PO SCH ×2 (08:36→20:19)
[2022-02-04] MEDS: OXYTOCIN 30 UNITS in LACTATED RINGER'S 1,000 ML IV SCH (08:48)
[2022-02-04] MEDS ORDERED: KETOROLAC 30 MG/ML VIAL IV PRN (15:52)
[2022-02-04] MEDS ORDERED: ONDANSETRON INJ 2 MG/ML 2 ML VIAL IV PRN (15:52)
[2022-02-04] MEDS ORDERED: diphenhydrAMINE 50 MG/ML VIAL IV PRN (15:52)
[2022-02-04] MEDS ORDERED: PROMETHAZINE HCL 25 MG in SODIUM CHLORIDE 0.9% 50 ML IV PRN (15:52)
[2022-02-04] MEDS ORDERED: diphenhydrAMINE Capsule 25 MG CAP PO PRN (15:52)
[2022-02-04] MEDS ORDERED: bisacodyL 5 MG TABEC PO SCH (20:00)
[2022-02-04] MEDS: oxyCODONE/ACETAMINOPHEN 5mg/325mg TAB PO PRN (20:19)
[2022-02-04] MEDS: IBUPROFEN 600 MG TAB PO PRN (20:19)
[2022-02-05] MEDS: IBUPROFEN 600 MG TAB PO PRN ×4 (00:54→22:48)
[2022-02-05] MEDS: oxyCODONE/ACETAMINOPHEN 5mg/325mg TAB PO PRN ×4 (00:54→22:48)
[2022-02-05 06:24] LABS: Hematocrit (blood only) 24.9 % (37-47); Hemoglobin 8.2 g/dL (12.0-16.0); Mean Corpuscular Hemoglobin 25.9 pg (25-34); Mean Corpuscular Hgb Conc 32.9 g/dL (32-36); Mean Corpuscular Volume 78.5 fL (80-100); Platelet Count 187 K/uL (130-400); RDW Coefficient of Variation 15.5 % (11.5-14.5); RDW Standard Deviation 44.4 fL (36.4-46.3); Red Blood Count 3.17 M/uL (4.2-5.4); White Blood Count 15.17 K/uL (4.8-10.8)
[2022-02-05 06:46] LABS: ALC (manual) 0.93 K/uL (1.2-3.4); ANC (manual) 13.46 K/uL (1.4-6.5); Lymphocytes # (manual) 0.93 K/uL (1.2-3.4); Lymphocytes % (manual) 6.1 %; Monocytes # (manual) 0.79 K/uL (0.11-0.59); Monocytes % (manual) 5.2 %; Neutrophils # (manual) 13.46 K/uL (1.4-6.5); Neutrophils % (manual) 88.7 %; RBC Morphology Unremarkable
[2022-02-05] MEDS: DOCUSATE SODIUM 100 MG CAP PO SCH ×2 (08:33→20:08)
[2022-02-05] MEDS: SERTRALINE HCL 100 MG TABLET PO SCH (08:33)
[2022-02-05] MEDS: SIMETHICONE 80 MG CHEW PO SCH ×4 (08:33→20:08)
[2022-02-05] MEDS: FERROUS SULFATE 325 MG TAB PO SCH (08:33)
[2022-02-05] MEDS: PRENATAL VITAMIN 1 TAB PO SCH ×2 (08:33→14:05)
--- NOTE | 2022-02-05 09:20 | Obstetrical Progress Note ---
Date of Service February 05, 2022 Subjective Ambulation: ambulating normally Voiding: no voiding problems Passing Gas:: Yes Diet Tolerance:: regular diet Lochia:: Small Feeding Type:: breast feeding Current Pain Level(1-10): 0 doing well Physical Exam Constitutional WD/WN, vitals as above Gastrointestinal (Abdomen) Inspection/Auscultation: abdomen normal to inspection and + abdominal surgical incision abdomen soft and non-tender. incision c/d/i dressing removed Skin no rashes, warm and dry neg Rosemary's Neurologic patellar DTR's 2+ bilat, sensation intact Psychiatric A+Ox3, euthymic affect Results & Data ([facility]) Vital Signs (Past 12 Hours) Vital Signs Temp Pulse Resp BP Pulse Ox 02/05/22 08:00 36.6 C 93 H 17 122/82 98 02/04/22 23:05 36.8 C 98 H 18 109/69 99 Laboratory Results Laboratory Results - last 72 hr 02/02/22 02/02/22 02/02/22 21:49 21:49 22:54 WBC 16.65 H RBC 4.37 Hgb 10.7 L Hct 33.6 L MCV 76.9 L MCH 24.5 L MCHC 31.8 L RDW Std Deviation 42.3 RDW Coeff of Kishan 15.1 H Plt Count 228 MPV 11.5 H Immature Gran % (Auto) Neut % (Auto) Lymph % (Auto) [place] % (Auto) Eos % (Auto) Baso % (Auto) Neut # (Auto) Lymph # (Auto) [place] # (Auto) Eos # (Auto) Baso # (Auto) Immature Gran # (Auto) Neutrophils % (Manual) Lymphocytes % (Manual) Monocytes % (Manual) Neutrophils # (Manual) Total Absolute Neuts Lymphocytes # (Manual) Total Abs Lymphocytes Monocytes # (Manual) RBC Morphology Sodium 135 L Potassium 3.7 Chloride 108 H Carbon Dioxide 21 Anion Gap 6 BUN 11 Creatinine 0.97 Est Cr Clr Drug Dosing 77.0 Est GFR ( Amer) 89.6 Est GFR (Non-Af Amer) 77.3 BUN/Creatinine Ratio 11.3 Glucose 86 Calcium 8.1 L Total Bilirubin 0.6 AST 19 ALT 20 Alkaline Phosphatase 200 H Lactate Dehydrogenase Total Protein 5.9 L Albumin 3.1 L Globulin 2.8 Albumin/Globulin Ratio 1.1 Ur Random Creatinine U Random Total Protein Protein/Creatinin Ratio Blood Type A Positive Antibody Screen NEGATIVE 02/02/22 02/02/22 02/04/22 22:54 23:35 06:06 WBC 19.01 H RBC 3.48 L Hgb 9.0 L Hct 27.6 L MCV 79.3 L MCH 25.9 MCHC 32.6 RDW Std Deviation 44.2 RDW Coeff of Kishan 15.3 H Plt Count 179 MPV 11.3 H Immature Gran % (Auto) 0.5 Neut % (Auto) 82.7 Lymph % (Auto) 8.0 [place] % (Auto) 8.6 Eos % (Auto) 0.1 Baso % (Auto) 0.1 Neut # (Auto) 15.72 H Lymph # (Auto) 1.52 [place] # (Auto) 1.64 H Eos # (Auto) 0.02 Baso # (Auto) 0.02 Immature Gran # (Auto) 0.09 H Neutrophils % (Manual) Lymphocytes % (Manual) Monocytes % (Manual) Neutrophils # (Manual) Total Absolute Neuts Lymphocytes # (Manual) Total Abs Lymphocytes Monocytes # (Manual) RBC Morphology Sodium Potassium Chloride Carbon Dioxide Anion Gap BUN Creatinine Est Cr Clr Drug Dosing Est GFR ( Amer) Est GFR (Non-Af Amer) BUN/Creatinine Ratio Glucose Calcium Total Bilirubin AST ALT Alkaline Phosphatase Lactate Dehydrogenase 182 Total Protein Albumin Globulin Albumin/Globulin Ratio Ur Random Creatinine 172.9 U Random Total Protein 32.4 H Protein/Creatinin Ratio 0.2 Blood Type Antibody Screen 02/05/22 05:55 WBC 15.17 H RBC 3.17 L Hgb 8.2 L Hct 24.9 L MCV 78.5 L MCH 25.9 MCHC 32.9 RDW Std Deviation 44.4 RDW Coeff of Kishan 15.5 H Plt Count 187 MPV 11.0 H Immature Gran % (Auto) Neut % (Auto) Lymph % (Auto) [place] % (Auto) Eos % (Auto) Baso % (Auto) Neut # (Auto) Lymph # (Auto) [place] # (Auto) Eos # (Auto) Baso # (Auto) Immature Gran # (Auto) Neutrophils % (Manual) 88.7 Lymphocytes % (Manual) 6.1 Monocytes % (Manual) 5.2 Neutrophils # (Manual) 13.46 H Total Absolute Neuts 13.46 H Lymphocytes # (Manual) 0.93 L Total Abs Lymphocytes 0.93 L Monocytes # (Manual) 0.79 H RBC Morphology Unremarkable Sodium Potassium Chloride Carbon Dioxide Anion Gap BUN Creatinine Est Cr Clr Drug Dosing Est GFR ( Amer) Est GFR (Non-Af Amer) BUN/Creatinine Ratio Glucose Calcium Total Bilirubin AST ALT Alkaline Phosphatase Lactate Dehydrogenase Total Protein Albumin Globulin Albumin/Globulin Ratio Ur Random Creatinine U Random Total Protein Protein/Creatinin Ratio Blood Type Antibody Screen
[2022-02-05] MEDS ORDERED: Nursing to Pharmacy Communication SCH (14:15)
[2022-02-05] MEDS ORDERED: bisacodyL 10 MG SUPP PR PRN (22:30)
[2022-02-06] MEDS: DOCUSATE SODIUM 100 MG CAP PO SCH (07:44)
[2022-02-06] MEDS: SIMETHICONE 80 MG CHEW PO SCH (07:45)
[2022-02-06] MEDS: PRENATAL VITAMIN 1 TAB PO SCH ×2 (07:45→07:46)
[2022-02-06] MEDS: IBUPROFEN 600 MG TAB PO PRN (07:45)
[2022-02-06] MEDS: FERROUS SULFATE 325 MG TAB PO SCH (07:45)
[2022-02-06] MEDS: oxyCODONE/ACETAMINOPHEN 5mg/325mg TAB PO PRN (07:46)
[2022-02-06] MEDS: SERTRALINE HCL 100 MG TABLET PO SCH (07:50)
--- NOTE | 2022-02-06 07:57 | Obstetrical Progress Note ---
Date of Service February 06, 2022 Assessment & Plan (1) Normal course: D/c home today Staple removal in 4-5 days in clinic Continue routine PP care Subjective Ambulation: ambulating normally Voiding: no voiding problems Passing Gas:: Yes Diet Tolerance:: regular diet Lochia:: Small Feeding Type:: breast feeding Current Pain Level(1-10): 5 Doing well, just took pain meds. Pain controlled with ibuprofen and Percocet. Wants to go home today Physical Exam Constitutional WD/WN, vitals as above Respiratory normal respiratory effort, lungs clear to auscultation Cardiovascular RRR, no murmur, no edema Gastrointestinal (Abdomen) normal bowel sounds, soft, nontender, no hepatosplenomegaly [place] in place Results & Data ([facility]) Vital Signs (Past 12 Hours) Vital Signs Temp Pulse Resp BP 02/05/22 23:00 37.0 C 90 18 119/74 02/05/22 20:05 36.8 C 90 18 117/74
== END 2022-02-06 10:55 | disposition home or self-care (01) | DRG 788 ==
LOC: 4S1 20:36 → 4E1 02-04 00:55